=== PATIENT | female | born 1955 | race Caucasian/White ===

== ENCOUNTER 2018-04-24 10:27 | Observation (INO) | payer MEDICARE, OTHER, SELFPAY ==
[2018-04-24] VITALS (13 sets, daily range): BP systolic 155–232; BP diastolic 85–102; PULSE 16–95; RESP 14–18; TEMP 36.4–36.5; O2SAT 94–100
--- NOTE | 2018-04-24 10:24 | DI.CT.S_ITS ---
PROCEDURE: CT HEAD/BRAIN WO CON INDICATIONS: code stroke, TPA candidate TECHNIQUE: Noncontrast 4.5 mm thick angled axial sections acquired from the foramen magnum to the vertex, with coronal and sagittal reformats. For radiation dose reduction, the following was used: automated exposure control, adjustment of mA and/or kV according to patient size. COMPARISON: None. FINDINGS: Image quality: Excellent. CSF spaces: Basal cisterns are patent. No extra-axial fluid collections. The ventricles are symmetric in size and shape. Brain: No intracranial bleeds or masses. There is cerebral volume loss for age, with resultant ventricular and sulcal prominence. There are periventricular and deep white matter chronic small vessel ischemic changes. There is intracranial internal carotid artery atherosclerosis. Skull and face: Calvarium and visualized facial bones appear intact, without suspicious lesions. Sinuses: Visualized sinuses and mastoids are clear. IMPRESSION: No acute intracranial abnormality. Findings discussed with Dr. Menard on 04.24.18 at 1040 hrs. Dictated by: Zayra Vasquez M.D. on 04/24/2018 at 10:38 Approved by: Zayra Vasquez M.D. on 04/24/2018 at 10:40
--- NOTE | 2018-04-24 10:40 | ED.NEUROSD ---
HPI - Neuro Symptoms/Deficit General Chief Complaint: Neuro Symptoms/Deficit Stated Complaint: Rt arm numbness Time Seen by Provider: 04/24/18 10:30 Source: patient and EMS Mode of arrival: EMS Limitations: no limitations History of Present Illness HPI Narrative: 63-year-old otherwise healthy female presents with neurologic symptoms that started while having intercourse just prior to arrival. Her symptoms include right arm and leg numbness as well as some right-sided facial tingling and right-sided tongue involvement. She denies blurred vision or trouble with speech. She states that when attempting to ambulate she had to steady herself because her leg would give out. She denies any history of stroke, hypertension or regular heart rhythm. Her symptoms are unchanged since their onset. She was activated as code stroke given symptoms and time of onset (914). Related Data Home Medications Medication Instructions Recorded Confirmed aspirin 650 mg PO Q4-6H PRN 04/24/18 04/24/18 Allergies Allergy/AdvReac Type Severity Reaction Status Date / Time No Known Drug Allergies Allergy Verified 04/24/18 11:00 Review of Systems Review of Systems All systems reviewed & are unremarkable except as noted in HPI and below Constitutional Denies chills, Denies fever(s), Denies lethargy and Reports weakness Eyes Denies change in vision, Denies eye discharge, Denies irritation and Denies loss of vision ENT Ears, Nose, Mouth, and Throat: Denies change in voice, Denies neck pain and Denies sore throat Cardiovascular Denies chest pain, Denies irregular heart rhythm, Denies lightheadedness, Denies palpitations, Denies dyspnea, Denies dyspnea on exertion and Denies orthopnea Respiratory Denies cough, Denies dyspnea, Denies dyspnea on exertion and Denies wheezing Gastrointestinal Gastrointestinal: Denies abdominal pain, Denies change in bowel habits, Denies diarrhea, Denies nausea and Denies vomiting Genitourinary Denies hematuria, Denies flank pain, Denies urinary incontinence and Denies urinary urgency Musculoskeletal Denies neck pain Integumentary/Breasts Denies pruritus, Denies erythema, Denies rash and Denies wounds Neurologic Denies confusion, Denies loss of vision, Reports sensory deficit and Reports weakness Psychiatric Denies anxiety, Denies confusion, Denies depression, Denies homicidal ideation and Denies suicidal ideation Endocrine Denies palpitations Hematologic/Lymphatic Denies easy bruising Allergic/Immunologic Denies wheezing [facility] Social History household members: spouse Smoking Status: Never smoker Exam Initial Vital Signs Initial Vital Signs: Vital Signs Pulse Rate 95 H 04/24/18 10:57 Respiratory Rate 18 04/24/18 10:57 Blood Pressure 221/85 H 04/24/18 10:57 Pulse Oximetry 98 04/24/18 10:57 Const General: cooperative and well developed Nutritional Appearance: well nourished Orientation: alert, awake, oriented x3 and not confused [facility] Head: normocephalic and atraumatic Ears: external ears normal and TM's normal bilaterally Nose: external nose normal and No nasal discharge Face and sinus: sinuses nontender, face symmetric, no sinus tenderness and No dry mucous membranes Mouth: oral mucosae normal and moist mucous membranes Teeth and gingiva: dentition normal Throat: tonsils normal and uvula midline Eyes General: appearance normal, both eyes and all related structures Eyelids: eyelids normal Conjunctivae: conjunctivae normal Sclera: sclerae normal Pupils: PERRL EOM: EOM intact bilaterally Neck Neck: normal visual inspection, trachea midline, No lymphadenopathy, No midline deformity and No JVD Lymphatic: No lymphedema Chest Chest: normal inspection of the chest Resp Effort & Inspection: normal respiratory effort, able to speak in complete sentences, no respiratory distress and no use of accessory muscles Auscultation: clear to auscultation bilaterally, no rales, no rhonchi and no wheezes Cardio Rate: regular rate Rhythm: regular rhythm Heart Sounds: no click, no gallops, no murmurs and no rubs Pulses: normal peripheral pulses GI Inspection: non-distended Palpation: soft, no hepatosplenomegaly, No guarding, No pulsatile mass and No tender Auscultation: normal bowel sounds Back/Spine/Pelvis Back: No CVA tenderness Cervical Spine: cervical ROM normal and No pain with cervical ROM Thoracic/Lumbar Spine: thoracic and lumbar spine normal to inspection Skin General: no rashes or lesions noted, No jaundice and No petechiae Neuro General: alert, oriented x3, gait normal and no focal motor deficits Speech: speech normal Sensory Exam: other (Minor tingling on right foot and right hand) Extrem General: full ROM, no clubbing, cyanosis or edema, no pedal edema and no calf tenderness Psych Appearance: well kempt Mental Status: mental status grossly normal Attitude: cooperative Thought Content: normal and suicidality Judgment: judgment good Scores NIH Stroke Scale Level of Conciousness: Alert, keenly responsive Ask month/age: Answers both questions correctly. Open/close eyes, close hand: Performs both tasks correctly Best gaze horizontal: Normal Visual husain: No visual loss Facial palsy: Normal symetrical movement Left arm drift: No drift for full 10 sec Right arm drift: No drift for full 10 sec Left leg drift: No drift for full 10 sec Right leg drift: No drift for full 10 sec Limb ataxia: Absent Sensory on face/arms/legs: Mild to moderate sensory loss, can tell touch Best language: No aphasia, normal Dysarthria: Normal Extinction or inattention: No abnormality Total NIH Stroke scale score: 1 Course Orders Ordered: ED Orders 04/24/18 10:24 CT head/brain wo con Stat 04/24/18 10:35 Urine Drug Screen, Rapid Stat 04/24/18 10:38 EKG-12 Lead Stat 04/24/18 10:58 Basic Metabolic Panel Stat Complete Blood Count AUTO DIFF Stat Partial Thromboplastin Time Stat Prothrombin Time INR Stat 04/24/18 12:50 Urine Microscopic Stat 04/24/18 14:58 Consult to Physical Therapy Evaluate & Treat MR stroke Stat Education, smoking cessation ONGOING 04/24/18 15:42 Education, smoking cessation ONGOING 04/25/18 05:00 Complete Blood Count AUTO DIFF Routine Comprehensive Metabolic Panel Routine Lipid Panel Routine Aspirin (Aspirin Ec) 325 mg PO DAILY [facility] Atorvastatin Calcium (Lipitor) 40 mg PO BEDTIME [facility] Docusate Sodium (Colace) 100 mg PO BID [facility] Enoxaparin Sodium (Lovenox) 40 mg SUBCUT DAILY [facility] Sodium Chloride (Normal Saline 0.9%) 1,000 mls @ 150 mls/hr IV CONT NOBLE Last Admin: 04/24/18 15:52 Dose: 150 mls/hr Infusion: 04/24/18 13:53 Dose: 0 mls/hr Admin: 04/24/18 11:33 Dose: 150 mls/hr Labetalol HCl (Normodyne) 10 mg IV Q30MIN PRN PRN Reason: Hypertension Magnesium Hydroxide (Milk Of Magnesia) 30 ml PO DAILY PRN PRN Reason: Constipation Ondansetron HCl (Zofran) 4 mg IV Q8HR PRN PRN Reason: Nausea And Vomiting Ondansetron HCl (Zofran Odt) 4 mg PO Q8HR PRN PRN Reason: Nausea And Vomiting Oxycodone HCl (Percolone) 5 mg PO Q6HR PRN PRN Reason: Pain, Moderate (4-6) Sennosides (Senna) 17.2 mg PO BEDTIME NOBLE Sodium Biphosphate/Sodium Phosphate (Fleet Enema) 1 each SC PRN PRN PRN Reason: Constipation Discontinued Medications Aspirin (Aspirin Chew) 324 mg PO NOW ONE Stop: 04/24/18 10:52 Last Admin: 04/24/18 11:33 Dose: 324 mg Labetalol HCl (Normodyne) 10 mg IV NOW ONE Stop: 04/24/18 12:29 Last Admin: 04/24/18 12:30 Dose: 10 mg Metoprolol Tartrate (Lopressor) 25 mg PO NOW ONE Stop: 04/24/18 12:56 Last Admin: 04/24/18 13:06 Dose: 25 mg Vital Signs - 8 hr 04/24/18 10:57 04/24/18 11:06 04/24/18 11:30 Temperature Pulse Rate 95 H 94 H 87 Respiratory Rate 18 18 18 Blood Pressure 221/85 H Blood Pressure [Right Arm] 213/102 H 211/98 H Pulse Oximetry 98 94 99 04/24/18 12:06 04/24/18 12:40 04/24/18 12:50 Temperature Pulse Rate 16 L 93 H 91 H Respiratory Rate 16 16 16 Blood Pressure Blood Pressure [Right Arm] 232/101 H 186/87 H 182/86 H Pulse Oximetry 100 98 99 04/24/18 13:00 04/24/18 13:56 04/24/18 14:20 Temperature Pulse Rate 90 86 81 Respiratory Rate 16 14 18 Blood Pressure 155/85 H 160/99 H Blood Pressure [Right Arm] 159/88 H Pulse Oximetry 99 98 97 04/24/18 15:42 04/24/18 15:55 Temperature 97.7 F 97.7 F Pulse Rate 81 84 Respiratory Rate 17 17 Blood Pressure 158/91 H 158/91 H Blood Pressure [Right Arm] Pulse Oximetry 96 96 MDM - Neuro Symptoms/Deficit Medical Records Attestation: I reviewed the patient's medical records. Lab Data Result diagrams: 04/24/18 10:58 04/24/18 10:58 Lab Results 04/24/18 04/24/18 04/24/18 Range/Units 10:35 10:58 10:58 WBC 5.2 (4.5-11.0) X10^3/uL RBC 4.29 (4.0-5.2) X10^6/uL Hgb 13.9 (12.0-16.0) g/dL Hct 39.9 (36-46) % MCV 93.0 (80-100) fL MCH 32.3 (26-34) PG MCHC 34.7 (30-36) % RDW 13.4 (11.6-14.8) % Plt Count 290 (150-400) X10^3/uL Neut % (Auto) 66.7 (50-75) % Lymph % (Auto) 24.3 L (25-40) % [place] % (Auto) 6.6 (3-14) % Eos % (Auto) 1.3 L (2-4) % Baso % (Auto) 1.1 (0-2) % Neut # (Auto) 3500 (9524-8645) /uL PT 11.2 (10.1-12.7) SECONDS INR 1.0 (0.9-1.3) APTT 31 (26.4-36.2) SECONDS Sodium (137-145) mmol/L Potassium (3.4-5.1) mmol/L Chloride (98-107) mmol/L Carbon Dioxide (22-32) mmol/L BUN (7-17) mg/dL Creatinine (0.52-1.04) mg/dL Estimated GFR (>60) mL/min BUN/Creatinine Ratio (6-22) Glucose (80-110) mg/dL Calcium (8.4-10.2) mg/dL Urine RBC (0-5/HPF) Urine WBC (0-5/HPF) Urine Bacteria (None) Ur Culture Indicated? Micro UA Comment Urine Opiates Screen Positive H (Negative) Ur Oxycodone Screen Positive H (Negative) Urine Methadone Screen Negative (Negative) Ur Barbiturates Screen Negative (Negative) U Tricyclic Antidepress Negative (Negative) Ur Phencyclidine Scrn Negative (Negative) Ur Amphetamines Screen Negative (Negative) U Methamphetamines Scrn Negative (Negative) Ur MDMA Scrn (Ecstasy) Negative (Negative) U Benzodiazepines Scrn Negative (Negative) Urine Cocaine Screen Negative (Negative) U Marijuana (THC) Screen Negative (Negative) 04/24/18 04/24/18 Range/Units 10:58 12:50 WBC (4.5-11.0) X10^3/uL RBC (4.0-5.2) X10^6/uL Hgb (12.0-16.0) g/dL Hct (36-46) % MCV (80-100) fL MCH (26-34) PG MCHC (30-36) % RDW (11.6-14.8) % Plt Count (150-400) X10^3/uL Neut % (Auto) (50-75) % Lymph % (Auto) (25-40) % [place] % (Auto) (3-14) % Eos % (Auto) (2-4) % Baso % (Auto) (0-2) % Neut # (Auto) (0544-4532) /uL PT (10.1-12.7) SECONDS INR (0.9-1.3) APTT (26.4-36.2) SECONDS Sodium 138 (137-145) mmol/L Potassium 4.1 (3.4-5.1) mmol/L Chloride 99 (98-107) mmol/L Carbon Dioxide 28 (22-32) mmol/L BUN 16 (7-17) mg/dL Creatinine 0.60 (0.52-1.04) mg/dL Estimated GFR > 60.0 (>60) mL/min BUN/Creatinine Ratio 26.7 H (6-22) Glucose 132 H (80-110) mg/dL Calcium 9.6 (8.4-10.2) mg/dL Urine RBC None seen (0-5/HPF) Urine WBC 0-1/hpf (0-5/HPF) Urine Bacteria None seen (None) Ur Culture Indicated? Cult not indicated Micro UA Comment Not Reportable Urine Opiates Screen (Negative) Ur Oxycodone Screen (Negative) Urine Methadone Screen (Negative) Ur Barbiturates Screen (Negative) U Tricyclic Antidepress (Negative) Ur Phencyclidine Scrn (Negative) Ur Amphetamines Screen (Negative) U Methamphetamines Scrn (Negative) Ur MDMA Scrn (Ecstasy) (Negative) U Benzodiazepines Scrn (Negative) Urine Cocaine Screen (Negative) U Marijuana (THC) Screen (Negative) Imaging Data CT scan - head: Radiologist's impression: NAP ECG Data Interpretation: Sinus tachycardia, no ectopy or ischemia MDM Narrative Medical decision making narrative: Given persistence of neurologic symptoms, tingling and right hand and foot this meets criteria for stroke and inpatient admission, suggesting she will need more than 1 night for evaluation and treatment. Furthermore patient's diagnosis hypertensive emergency will require the potential for further evaluation. Patient has been admitted to hospitalist, Dr. Villegas whom is happy to care for patient Discharge Plan Departure Patient Disposition: Admitted As Inpatient Clinical Impression: Acute CVA (cerebrovascular accident), Malignant essential hypertension Discharge Date/Time: 04/24/18 13:58 Interventions: ED Discharge Assessment Last Done: 04/24/18 13:56 Admit Date/Time: 04/24/18 13:25 Admit Provider: Gagan Villegas
--- NOTE | 2018-04-24 10:45 | ED_ITS ---
HPI - Neuro Symptoms/Deficit General Chief Complaint: Neuro Symptoms/Deficit Stated Complaint: Rt arm numbness Time Seen by Provider: 04/24/18 10:30 Source: patient and EMS Mode of arrival: EMS Limitations: no limitations History of Present Illness HPI Narrative: 63-year-old otherwise healthy female presents with neurologic symptoms that started while having intercourse just prior to arrival. Her symptoms include right arm and leg numbness as well as some right-sided facial tingling and right-sided tongue involvement. She denies blurred vision or trouble with speech. She states that when attempting to ambulate she had to steady herself because her leg would give out. She denies any history of stroke , hypertension or regular heart rhythm. Her symptoms are unchanged since their onset. She was activated as code stroke given symptoms and time of onset (914) . Related Data Home Medications Medication Instructions Recorded Confirmed aspirin 650 mg PO Q4-6H PRN 04/24/18 04/24/18 Allergies Allergy/AdvReac Type Severity Reaction Status Date / Time No Known Drug Allergies Allergy Verified 04/24/18 11:00 Review of Systems Review of Systems All systems reviewed & are unremarkable except as noted in HPI and below Constitutional Denies chills, Denies fever(s), Denies lethargy and Reports weakness Eyes Denies change in vision, Denies eye discharge, Denies irritation and Denies loss of vision ENT Ears, Nose, Mouth, and Throat: Denies change in voice, Denies neck pain and Denies sore throat Cardiovascular Denies chest pain, Denies irregular heart rhythm, Denies lightheadedness, Denies palpitations, Denies dyspnea, Denies dyspnea on exertion and Denies orthopnea Respiratory Denies cough, Denies dyspnea, Denies dyspnea on exertion and Denies wheezing Gastrointestinal Gastrointestinal: Denies abdominal pain, Denies change in bowel habits, Denies diarrhea, Denies nausea and Denies vomiting Genitourinary Denies hematuria, Denies flank pain, Denies urinary incontinence and Denies urinary urgency Musculoskeletal Denies neck pain Integumentary/Breasts Denies pruritus, Denies erythema, Denies rash and Denies wounds Neurologic Denies confusion, Denies loss of vision, Reports sensory deficit and Reports weakness Psychiatric Denies anxiety, Denies confusion, Denies depression, Denies homicidal ideation and Denies suicidal ideation Endocrine Denies palpitations Hematologic/Lymphatic Denies easy bruising Allergic/Immunologic Denies wheezing [facility] Social History household members: spouse Smoking Status: Never smoker Exam Initial Vital Signs Initial Vital Signs: Vital Signs Pulse Rate 95 H 04/24/18 10:57 Respiratory Rate 18 04/24/18 10:57 Blood Pressure 221/85 H 04/24/18 10:57 Pulse Oximetry 98 04/24/18 10:57 Const General: cooperative and well developed Nutritional Appearance: well nourished Orientation: alert, awake, oriented x3 and not confused [facility] Head: normocephalic and atraumatic Ears: external ears normal and TM's normal bilaterally Nose: external nose normal and No nasal discharge Face and sinus: sinuses nontender, face symmetric, no sinus tenderness and No dry mucous membranes Mouth: oral mucosae normal and moist mucous membranes Teeth and gingiva: dentition normal Throat: tonsils normal and uvula midline Eyes General: appearance normal, both eyes and all related structures Eyelids: eyelids normal Conjunctivae: conjunctivae normal Sclera: sclerae normal Pupils: PERRL EOM: EOM intact bilaterally Neck Neck: normal visual inspection, trachea midline, No lymphadenopathy, No midline deformity and No JVD Lymphatic: No lymphedema Chest Chest: normal inspection of the chest Resp Effort & Inspection: normal respiratory effort, able to speak in complete sentences, no respiratory distress and no use of accessory muscles Auscultation: clear to auscultation bilaterally, no rales, no rhonchi and no wheezes Cardio Rate: regular rate Rhythm: regular rhythm Heart Sounds: no click, no gallops, no murmurs and no rubs Pulses: normal peripheral pulses GI Inspection: non-distended Palpation: soft, no hepatosplenomegaly, No guarding, No pulsatile mass and No tender Auscultation: normal bowel sounds Back/Spine/Pelvis Back: No CVA tenderness Cervical Spine: cervical ROM normal and No pain with cervical ROM Thoracic/Lumbar Spine: thoracic and lumbar spine normal to inspection Skin General: no rashes or lesions noted, No jaundice and No petechiae Neuro General: alert, oriented x3, gait normal and no focal motor deficits Speech: speech normal Sensory Exam: other (Minor tingling on right foot and right hand) Extrem General: full ROM, no clubbing, cyanosis or edema, no pedal edema and no calf tenderness Psych Appearance: well kempt Mental Status: mental status grossly normal Attitude: cooperative Thought Content: normal and suicidality Judgment: judgment good Scores NIH Stroke Scale Level of Conciousness: Alert, keenly responsive Ask month/age: Answers both questions correctly. Open/close eyes, close hand: Performs both tasks correctly Best gaze horizontal: Normal Visual husain: No visual loss Facial palsy: Normal symetrical movement Left arm drift: No drift for full 10 sec Right arm drift: No drift for full 10 sec Left leg drift: No drift for full 10 sec Right leg drift: No drift for full 10 sec Limb ataxia: Absent Sensory on face/arms/legs: Mild to moderate sensory loss, can tell touch Best language: No aphasia, normal Dysarthria: Normal Extinction or inattention: No abnormality Total NIH Stroke scale score: 1 Course Orders Ordered: ED Orders 04/24/18 10:24 CT head/brain wo con Stat 04/24/18 10:35 Urine Drug Screen, Rapid Stat 04/24/18 10:38 EKG-12 Lead Stat 04/24/18 10:58 Basic Metabolic Panel Stat Complete Blood Count AUTO DIFF Stat Partial Thromboplastin Time Stat Prothrombin Time INR Stat 04/24/18 12:50 Urine Microscopic Stat 04/24/18 14:58 Consult to Physical Therapy Evaluate & Treat MR stroke Stat Education, smoking cessation ONGOING 04/24/18 15:42 Education, smoking cessation ONGOING 04/25/18 05:00 Complete Blood Count AUTO DIFF Routine Comprehensive Metabolic Panel Routine Lipid Panel Routine Aspirin (Aspirin Ec) 325 mg PO DAILY [facility] Atorvastatin Calcium (Lipitor) 40 mg PO BEDTIME [facility] Docusate Sodium (Colace) 100 mg PO BID [facility] Enoxaparin Sodium (Lovenox) 40 mg SUBCUT DAILY [facility] Sodium Chloride (Normal Saline 0.9%) 1,000 mls @ 150 mls/hr IV CONT [facility] Last Admin: 04/24/18 15:52 Dose: 150 mls/hr Infusion: 04/24/18 13:53 Dose: 0 mls/hr Admin: 04/24/18 11:33 Dose: 150 mls/hr Labetalol HCl (Normodyne) 10 mg IV Q30MIN PRN PRN Reason: Hypertension Magnesium Hydroxide (Milk Of Magnesia) 30 ml PO DAILY PRN PRN Reason: Constipation Ondansetron HCl (Zofran) 4 mg IV Q8HR PRN PRN Reason: Nausea And Vomiting Ondansetron HCl (Zofran Odt) 4 mg PO Q8HR PRN PRN Reason: Nausea And Vomiting Oxycodone HCl (Percolone) 5 mg PO Q6HR PRN PRN Reason: Pain, Moderate (4-6) Sennosides (Senna) 17.2 mg PO BEDTIME [facility] Sodium Biphosphate/Sodium Phosphate (Fleet Enema) 1 each RI PRN PRN PRN Reason: Constipation Discontinued Medications Aspirin (Aspirin Chew) 324 mg PO NOW ONE Stop: 04/24/18 10:52 Last Admin: 04/24/18 11:33 Dose: 324 mg Labetalol HCl (Normodyne) 10 mg IV NOW ONE Stop: 04/24/18 12:29 Last Admin: 04/24/18 12:30 Dose: 10 mg Metoprolol Tartrate (Lopressor) 25 mg PO NOW ONE Stop: 04/24/18 12:56 Last Admin: 04/24/18 13:06 Dose: 25 mg Vital Signs - 8 hr 04/24/18 10:57 04/24/18 11:06 04/24/18 11:30 Temperature Pulse Rate 95 H 94 H 87 Respiratory Rate 18 18 18 Blood Pressure 221/85 H Blood Pressure [Right Arm] 213/102 H 211/98 H Pulse Oximetry 98 94 99 04/24/18 12:06 04/24/18 12:40 04/24/18 12:50 Temperature Pulse Rate 16 L 93 H 91 H Respiratory Rate 16 16 16 Blood Pressure Blood Pressure [Right Arm] 232/101 H 186/87 H 182/86 H Pulse Oximetry 100 98 99 04/24/18 13:00 04/24/18 13:56 04/24/18 14:20 Temperature Pulse Rate 90 86 81 Respiratory Rate 16 14 18 Blood Pressure 155/85 H 160/99 H Blood Pressure [Right Arm] 159/88 H Pulse Oximetry 99 98 97 04/24/18 15:42 04/24/18 15:55 Temperature 97.7 F 97.7 F Pulse Rate 81 84 Respiratory Rate 17 17 Blood Pressure 158/91 H 158/91 H Blood Pressure [Right Arm] Pulse Oximetry 96 96 MDM - Neuro Symptoms/Deficit Medical Records Attestation: I reviewed the patient's medical records. Lab Data Result diagrams: 04/24/18 10:58 04/24/18 10:58 Lab Results 04/24/18 04/24/18 04/24/18 Range/Units 10:35 10:58 10:58 WBC 5.2 (4.5-11.0) X10^3/uL RBC 4.29 (4.0-5.2) X10^6/uL Hgb 13.9 (12.0-16.0) g/dL Hct 39.9 (36-46) % MCV 93.0 (80-100) fL MCH 32.3 (26-34) PG MCHC 34.7 (30-36) % RDW 13.4 (11.6-14.8) % Plt Count 290 (150-400) X10^3/uL Neut % (Auto) 66.7 (50-75) % Lymph % (Auto) 24.3 L (25-40) % [place] % (Auto) 6.6 (3-14) % Eos % (Auto) 1.3 L (2-4) % Baso % (Auto) 1.1 (0-2) % Neut # (Auto) 3500 (6882-6750) /uL PT 11.2 (10.1-12.7) SECONDS INR 1.0 (0.9-1.3) APTT 31 (26.4-36.2) SECONDS Sodium (137-145) mmol/L Potassium (3.4-5.1) mmol/L Chloride (98-107) mmol/L Carbon Dioxide (22-32) mmol/L BUN (7-17) mg/dL Creatinine (0.52-1.04) mg/dL Estimated GFR (>60) mL/min BUN/Creatinine Ratio (6-22) Glucose (80-110) mg/dL Calcium (8.4-10.2) mg/dL Urine RBC (0-5/HPF) Urine WBC (0-5/HPF) Urine Bacteria (None) Ur Culture Indicated? Micro UA Comment Urine Opiates Screen Positive H (Negative) Ur Oxycodone Screen Positive H (Negative) Urine Methadone Screen Negative (Negative) Ur Barbiturates Screen Negative (Negative) U Tricyclic Antidepress Negative (Negative) Ur Phencyclidine Scrn Negative (Negative) Ur Amphetamines Screen Negative (Negative) U Methamphetamines Scrn Negative (Negative) Ur MDMA Scrn (Ecstasy) Negative (Negative) U Benzodiazepines Scrn Negative (Negative) Urine Cocaine Screen Negative (Negative) U Marijuana (THC) Screen Negative (Negative) 04/24/18 04/24/18 Range/Units 10:58 12:50 WBC (4.5-11.0) X10^3/uL RBC (4.0-5.2) X10^6/uL Hgb (12.0-16.0) g/dL Hct (36-46) % MCV (80-100) fL MCH (26-34) PG MCHC (30-36) % RDW (11.6-14.8) % Plt Count (150-400) X10^3/uL Neut % (Auto) (50-75) % Lymph % (Auto) (25-40) % [place] % (Auto) (3-14) % Eos % (Auto) (2-4) % Baso % (Auto) (0-2) % Neut # (Auto) (3049-8291) /uL PT (10.1-12.7) SECONDS INR (0.9-1.3) APTT (26.4-36.2) SECONDS Sodium 138 (137-145) mmol/L Potassium 4.1 (3.4-5.1) mmol/L Chloride 99 (98-107) mmol/L Carbon Dioxide 28 (22-32) mmol/L BUN 16 (7-17) mg/dL Creatinine 0.60 (0.52-1.04) mg/dL Estimated GFR > 60.0 (>60) mL/min BUN/Creatinine Ratio 26.7 H (6-22) Glucose 132 H (80-110) mg/dL Calcium 9.6 (8.4-10.2) mg/dL Urine RBC None seen (0-5/HPF) Urine WBC 0-1/hpf (0-5/HPF) Urine Bacteria None seen (None) Ur Culture Indicated? Cult not indicated Micro UA Comment Not Reportable Urine Opiates Screen (Negative) Ur Oxycodone Screen (Negative) Urine Methadone Screen (Negative) Ur Barbiturates Screen (Negative) U Tricyclic Antidepress (Negative) Ur Phencyclidine Scrn (Negative) Ur Amphetamines Screen (Negative) U Methamphetamines Scrn (Negative) Ur MDMA Scrn (Ecstasy) (Negative) U Benzodiazepines Scrn (Negative) Urine Cocaine Screen (Negative) U Marijuana (THC) Screen (Negative) Imaging Data CT scan - head: Radiologist's impression: NAP ECG Data Interpretation: Sinus tachycardia, no ectopy or ischemia MDM Narrative Medical decision making narrative: Given persistence of neurologic symptoms, tingling and right hand and foot this meets criteria for stroke and inpatient admission, suggesting she will need more than 1 night for evaluation and treatment. Furthermore patient's diagnosis hypertensive emergency will require the potential for further evaluation. Patient has been admitted to hospitalist , Dr. Villegas whom is happy to care for patient Discharge Plan Departure Patient Disposition: Admitted As Inpatient Clinical Impression: Acute CVA (cerebrovascular accident), Malignant essential hypertension Discharge Date/Time: 04/24/18 13:58 Interventions: ED Discharge Assessment Last Done: 04/24/18 13:56 Admit Date/Time: 04/24/18 13:25 Admit Provider: Gagan Villegas
[2018-04-24 11:03] LABS: Add Manual Diff / Slide Review NO; Basophils Percent Auto 1.1 % (0-2); Eosinophils Percent Auto 1.3 % (2-4); Hematocrit 39.9 % (36-46); Hemoglobin 13.9 g/dL (12.0-16.0); Lymphocytes Percent Auto 24.3 % (25-40); Mean Corpuscular HGB Conc 34.7 % (30-36); Mean Corpuscular Hemoglobin 32.3 PG (26-34); Monocytes Percent Auto 6.6 % (3-14); Neutrophils Absolute Auto 3500 /uL (3000-5900); Neutrophils Percent Auto 66.7 % (50-75); Platelet Count 290 X10^3/uL (150-400); Red Blood Cell Count 4.29 X10^6/uL (4.0-5.2); Red Cell Distribution Width 13.4 % (11.6-14.8); White Blood Cell Count 5.2 X10^3/uL (4.5-11.0)
[2018-04-24 11:14] LABS: Prothrombin Time 11.2 SECONDS (10.1-12.7)
[2018-04-24 11:16] LABS: PTT Partial Thromboplastin Tim 31 SECONDS (26.4-36.2)
[2018-04-24 11:18] LABS: BUN Creatinine Ratio 26.7 (6-22); Blood Urea Nitrogen 16 mg/dL (7-17); Calcium 9.6 mg/dL (8.4-10.2); Carbon Dioxide 28 mmol/L (22-32); Chloride 99 mmol/L (98-107); Estimated Glomerular Filt Rate > 60.0 mL/min (>60); Glucose 132 mg/dL (80-110); HEMOLYSIS < 15 (0-50); Potassium 4.1 mmol/L (3.4-5.1); Sodium 138 mmol/L (137-145)
[2018-04-24] MEDS: SODIUM CHLORIDE 0.9% 1,000 ML 150 ML IV ×3 (11:33→22:53)
[2018-04-24] MEDS: ASPIRIN 81 MG TAB 324 MG PO (11:33)
[2018-04-24] MEDS: LABETALOL 100 MG/20ML MDV 10 MG IV (12:30)
[2018-04-24 13:04] LABS: Urine Amphetamines Negative (Negative); Urine Barbiturates Negative (Negative); Urine Benzodiazepines Negative (Negative); Urine Cocaine Negative (Negative); Urine MDMA Negative (Negative); Urine Methadone Negative (Negative); Urine Methamphetamines Negative (Negative); Urine Morphine/Opi cutoff 2000 Positive (Negative); Urine Oxycodone Positive (Negative); Urine Phencyclidine Negative (Negative); Urine Tetrahydrocannabinol Negative (Negative); Urine Tricyclic Antidepressant Negative (Negative)
[2018-04-24] MEDS: METOPROLOL 25 MG TABLET PO (13:06)
[2018-04-24 13:13] LABS: Bacteria Urine None Seen; RBC Urine None Seen (0-5/HPF)
[2018-04-24 13:27] LABS: Culture Indicated Urine Cult Not Indicated; WBC Urine 0-1/HPF (0-5/HPF)
--- NOTE | 2018-04-24 14:37 | PC.NURSE ---
Addendum entered by Rhonda Barksdale R.N. 04/24/18 14:46: Only home medication pt reports is aspirin with codeine for headache (for headaches and to prevent migraines). Health history: denies any major health history. Original Note: AM shift Patient arrived at 1403, AOx3, pleasant and denying pain, but reporting mild light-headedness. Reporting a mild headache ( 3/10) and would like something to decrease that. Doesn't want to develop migraine. BP 160/99, 81, 97% RA. SBA to BR. NIH score 0.
--- NOTE | 2018-04-24 16:10 | P.HP_ITS ---
History of Present Illness Date Patient Seen: 04/24/18 Time Patient Seen: 13:54 Chief complaint: Rt arm numbness Narrative: Patient is 63 years of age female who notes onset of right-sided numbness and weakness following sexual encounter with her . Patient notes that she felt the numbness primarily but also weakness that was noted. There was no speech impediment nor difficulty with understanding her 's comments. There was no visual disturbance. The symptoms lasted approximately 4 hr before they resolved. Patient had no recent fevers or chills chest pain cough nausea vomiting. Patient notes that she has no prior history of stroke or TIA. She is a nondiabetic. She does not have known history of hypertension that is being treated. No history of hyperlipidemia. In review of history patient presents with an ABCD2 score of 5/7. This puts patient at moderate risk for stroke. The risk of stroke in the next 2 days is 4.1% the risk of stroke in the next 7 days 5.9% and the risk of stroke in the next 90 days at 9.8% with an intermediate ABCD2 score. Patient History Comment: In review of past medical history patient with out prior history of TIA or CVA nor history of diabetes nor history of hypertension nor history of hyperlipidemia. patient notes history of migraine headache years ago which subsided as she went through the menopause. She does note occasional headache with a vice-like, tight head band sensation that she experiences 3 times per week. Patient uses an aspirin with codeine from [facility] that she regularly uses for these headache episodes 3 times per week. Family & Social History Family history unavailable: Yes (Father with a history of stroke at 90 years of age no history of DVT or PE are peripheral vascular disease otherwise in family members) Social History: household members spouse Prior Living Arrangements Apartment/Condo Safety & Behavioral: Feels Safe in Current Yes Environment Been Physically Hurt or No Threatened By a Person Suicidal Ideation Description None Suicide Plan Description No Plan Tobacco & Substance use: Smoking Status Never smoker alcohol intake frequency 0-2 drinks per day Substance Use Type does not use Comment: Patient is she is a nonsmoker nonalcohol abuser Meds Home Medications Medication Instructions Recorded Confirmed Type aspirin 650 mg PO Q4-6H PRN 04/24/18 04/24/18 History Allergies Allergy/AdvReac Type Severity Reaction Status Date / Time No Known Drug Allergies Allergy Verified 04/24/18 11:00 Review of Systems Review of Systems All systems reviewed & are unremarkable except as noted in HPI and below Exam Vital Signs (past 8 hours): - 04/24/18 10:57 04/24/18 11:06 04/24/18 11:30 Pulse Rate 95 H 94 H 87 Respiratory Rate 18 18 18 Blood Pressure 221/85 H Blood Pressure [Right Arm] 213/102 H 211/98 H Pulse Oximetry 98 94 99 04/24/18 12:06 04/24/18 12:40 04/24/18 12:50 Pulse Rate 16 L 93 H 91 H Respiratory Rate 16 16 16 Blood Pressure Blood Pressure [Right Arm] 232/101 H 186/87 H 182/86 H Pulse Oximetry 100 98 99 04/24/18 13:00 04/24/18 13:56 04/24/18 14:20 Pulse Rate 90 86 81 Respiratory Rate 16 14 18 Blood Pressure 155/85 H 160/99 H Blood Pressure [Right Arm] 159/88 H Pulse Oximetry 99 98 97 Oxygen Delivery Method Room Air Narrative Exam Narrative: Constitutional general appearance patient is awake and alert and comfortable no apparent distress good hygiene apparent Psychiatric Patient is well oriented to time place and person mood and affect is appropriate Respiratory Clear to auscultation with good airflow no wheezes no crackles Cardiovascular Regular in rate rhythm no murmur rubs or gallops PMI is nondisplaced pulses +3 to extremities GI Soft nontender positive bowel sounds no organomegaly no bruits no distension no guarding Lymph nodes No lymphadenopathy to neck or axilla Motor skeletal Motor strength 5/5 no clubbing is noted range of motion is normal Neurologic No focal neurologic changes, cranial nerves 2-12 are grossly intact as noted pupils are equal round and reactive to light and accommodation no sensory proprioception deficit noted Objective Labs Result Diagrams: 04/24/18 10:58 04/24/18 10:58 Labs: Laboratory Results - last 24 hr 04/24/18 04/24/18 04/24/18 10:35 10:58 10:58 WBC 5.2 RBC 4.29 Hgb 13.9 Hct 39.9 MCV 93.0 MCH 32.3 MCHC 34.7 RDW 13.4 Plt Count 290 Neut % (Auto) 66.7 Lymph % (Auto) 24.3 L [place] % (Auto) 6.6 Eos % (Auto) 1.3 L Baso % (Auto) 1.1 Neut # (Auto) 3500 PT 11.2 INR 1.0 APTT 31 Sodium Potassium Chloride Carbon Dioxide BUN Creatinine Estimated GFR BUN/Creatinine Ratio Glucose Calcium Urine RBC Urine WBC Urine Bacteria Ur Culture Indicated? Micro UA Comment Urine Opiates Screen Positive H Ur Oxycodone Screen Positive H Urine Methadone Screen Negative Ur Barbiturates Screen Negative U Tricyclic Antidepress Negative Ur Phencyclidine Scrn Negative Ur Amphetamines Screen Negative U Methamphetamines Scrn Negative Ur MDMA Scrn (Ecstasy) Negative U Benzodiazepines Scrn Negative Urine Cocaine Screen Negative U Marijuana (THC) Screen Negative 04/24/18 04/24/18 10:58 12:50 WBC RBC Hgb Hct MCV MCH MCHC RDW Plt Count Neut % (Auto) Lymph % (Auto) [place] % (Auto) Eos % (Auto) Baso % (Auto) Neut # (Auto) PT INR APTT Sodium 138 Potassium 4.1 Chloride 99 Carbon Dioxide 28 BUN 16 Creatinine 0.60 Estimated GFR > 60.0 BUN/Creatinine Ratio 26.7 H Glucose 132 H Calcium 9.6 Urine RBC None seen Urine WBC 0-1/hpf Urine Bacteria None seen Ur Culture Indicated? Cult not indicated Micro UA Comment Not Reportable Urine Opiates Screen Ur Oxycodone Screen Urine Methadone Screen Ur Barbiturates Screen U Tricyclic Antidepress Ur Phencyclidine Scrn Ur Amphetamines Screen U Methamphetamines Scrn Ur MDMA Scrn (Ecstasy) U Benzodiazepines Scrn Urine Cocaine Screen U Marijuana (THC) Screen Assessment & Plan Plan: Assessment/Plan Narrative: 1. Transient ischemic attack Patient with an ABCD2 score of 5/7 with a risk of stroke at 2 days of 4.1% at 7 days of 5.9% and at 90 days with a 9.8% risk. Patient admitted under observation. I requested an MRI and an MRA of the head neck to be done as soon as possible. In the meantime will provide labetalol 10 mg IV every 30 min as needed for systolic exceeding 180 mm Hg. Neuro checks to be done q.4 hours. Regular diet at this time permitted. Will start Lipitor 40 mg at bedtime daily aspirin 325 mg daily to be continued as well. 2. Malignant hypertension Patient with a blood pressure of 210/108 in the emergency room setting when seen initially. Note labetalol as needed for systolic greater than 180 intravenously. Close monitoring of blood pressure through the day. Will start amlodipine at 5 mg daily for chronic use. As discussed with patient she may benefit by follow-up with a shellfish manager in the outpatient setting to consider a treadmill exercise test to assess further for possibility of exercise induced hypertension episodes. Time Spent With Patient Time with patient: Greater than 35 minutes (65 min) Quality VTE Deep Vein Thrombosis/Pulmonary Embolism Present on Admission: No
--- NOTE | 2018-04-24 18:07 | PC.NURSE ---
patient is A&O x3, pleasant and cooperative w/ staff and able to make needs known. Patient at shift change/bedside req. to use BR. Patient was steady and able to ambulate w/ out feeling dizzy. Patient denies any pain. NIH score is 0 and displays no s/s of any stroke related symptoms or actions. Aid got patient up to BR at 1730 and reported back to nurse that patient was very unsteady and wobbling while ambulating and patient had to grab on to masters and furniture for stabilizing self. Patient was placed back to bed and bed alarm was initiated. Call light w/ in reach. Will cont. to monitor B/P, dizziness and unsteady gait. Patient at time denies any numbness or tingling but states slightly light headed and dizzy.
[2018-04-24] MEDS: DOCUSATE 100 MG CAPSULE PO (21:21)
[2018-04-24] MEDS: SENNOSIDES 8.6 MG TABLET 17.2 MG PO (21:21)
[2018-04-24] MEDS: ATORVASTATIN 20 MG TABLET 40 MG PO (21:21)
[2018-04-24] MEDS: OXYCODONE IR 5 MG TABLET PO (21:21)
[2018-04-25 00:15] VITALS: BP 143/85; PULSE 82; RESP 16; TEMP 36.7; O2SAT 97
--- NOTE | 2018-04-25 01:20 | PC.NURSE ---
Addendum entered by Bianka Lucas R.N. 04/25/18 06:33: Blood pressure 188/97 at 0630. Labetalol 10mg IV to be given now. Will recheck BP in 30min Original Note: Addendum entered by Bianka Lucas R.N. 04/25/18 04:04: Pt needs a one person assist and a gait belt and walker. She is extremely unsteady on her feet. She just got up with the DIRECTOR [employer]ECH AND HEARING to go to the bathroom again, and while trying to ambulate to the bathroom she started to lean and fall towards her right side into the wall next to the bathroom. The DIRECTOR [employer]ECH AND HEARING was able to stabilize her and prevent her from fully slamming into the wall and falling. The next time the patient needs to void we will use the bedside commode and keep it very close to the bed so it is just a pivot and one step. Original Note: Pt is AxOx3, VSS. NIH=0. Patient called to use the bathroom; upon standing her up next to the bed she immediately dropped onto the bed and had no muscle control/strength to support herself. She denies being dizzy or any loss of vision but stated she just feels a bit light headed. We explained to patient that we will get her up more slowly and dangle her legs at the bedside first. High risk Fall yellow gown was then put on patient, high risk fall sign next to door, and bed alarm turned on.
[2018-04-25 05:44] LABS: Add Manual Diff / Slide Review NO; Basophils Percent Auto 0.4 % (0-2); Eosinophils Percent Auto 0.7 % (2-4); Hematocrit 39.3 % (36-46); Hemoglobin 13.4 g/dL (12.0-16.0); Lymphocytes Percent Auto 23.3 % (25-40); Mean Corpuscular HGB Conc 34.2 % (30-36); Mean Corpuscular Hemoglobin 31.8 PG (26-34); Mean Corpuscular Volume 93.1 fL (80-100); Neutrophils Absolute Auto 5200 /uL (3000-5900); Neutrophils Percent Auto 68.6 % (50-75); Platelet Count 268 X10^3/uL (150-400); Red Blood Cell Count 4.22 X10^6/uL (4.0-5.2); Red Cell Distribution Width 13.7 % (11.6-14.8); White Blood Cell Count 7.5 X10^3/uL (4.5-11.0)
[2018-04-25 06:14] LABS: Alanine Aminotransferase 45 IU/L (9-52); Albumin 4.2 g/dL (3.5-5.0); Albumin Globulin Ratio 1.4 (1.0-2.8); Alkaline Phosphatase 75 U/L (38-126); Aspartate Aminotransferase 40 IU/L (14-36); Bilirubin Total 0.6 mg/dL (0.2-1.3); Blood Urea Nitrogen 6 mg/dL (7-17); Calcium 9.3 mg/dL (8.4-10.2); Carbon Dioxide 26 mmol/L (22-32); Chloride 106 mmol/L (98-107); Cholesterol 322 mg/dL (140-199); Estimated Glomerular Filt Rate > 60.0 mL/min (>60); Globulin 2.9 g/dL (1.7-4.1); Glucose 122 mg/dL (80-110); HDL Cholesterol 49 mg/dL (40-60); HEMOLYSIS < 15 (0-50); LDL Cholesterol Calculated 227 mg/dL (<100); Sodium 140 mmol/L (137-145); Total Protein 7.1 g/dL (6.3-8.2); Triglycerides 229 mg/dL (35-150)
[2018-04-25 06:32] VITALS: BP 188/97; PULSE 85; RESP 16; TEMP 36.9; O2SAT 97
[2018-04-25] MEDS: SODIUM CHLORIDE 0.9% 1,000 ML 150 ML IV (06:38)
[2018-04-25] MEDS: LABETALOL 100 MG/20ML MDV 10 MG IV ×2 (06:42→07:42)
[2018-04-25 07:00] VITALS: O2SAT 97
[2018-04-25 07:52] VITALS: BP 188/91; PULSE 82; RESP 18; TEMP 36.1; O2SAT 95
[2018-04-25 08:25] VITALS: BP 146/96
--- NOTE | 2018-04-25 08:43 | PC.NURSE ---
Pt given 10mg of iv Lebatolol for bp of 188/91. Rechecked about half hour later and bp down to 146/96. Pt denies feeling dizzy or Sob. IVF infusing and pt is eating her breakfast.
[2018-04-25] MEDS: ASPIRIN EC 325 MG TABLET PO (08:48)
[2018-04-25] MEDS: DOCUSATE 100 MG CAPSULE PO (08:48)
[2018-04-25] MEDS: ENOXAPARIN 40 MG/0.4 ML SYRINGE SUBCUT (08:49)
[2018-04-25] MEDS: AMLODIPINE 5 MG TABLET PO (08:49)
[2018-04-25 11:36] VITALS: BP 153/80; PULSE 88; RESP 18; TEMP 36.2; O2SAT 97
--- NOTE | 2018-04-25 12:32 | CM.DANOTE ---
Addendum entered by Lurdes Mason LPN 04/25/18 14:03: Dr. Villegas has now confirmed that that pt did have a small CVA. PT Maciej has worked with pt, deemed her stable for home but with the use of a FWW initially. Pt wishes to receive this from the PT dept consignment closet. Order is obtained now for same and given to PT Maciej to process accordingly. Pt home today. Maciej anticipates she will only need this for about a week as she recovers. Pt plans then to let other family members use in going forward. Original Note: Discharge Planning/Care Management DCP: assessment: case received, EMR reviewed and met with pt this morning at 0830. Introduced self and role. Pt is a 63 year old female who admitted to care of hospitalist team yesterday after noon. Payer: Medicare and [employer]. She says she feels better this morning but still has some sumbness in R lower leg. At that point MRI/MRA were pending. PT was ordered. P: follow prn as POC unfolds to assist with any d/c needs that may arise. At his point home appears likely. MRI/MRA results are back now and waiting for Dr. Villegas's review. CM Discharge Assessment Start: 04/25/18 12:12 Freq: Status: Active Protocol: Document 04/25/18 12:12 ITV (Rec: 04/25/18 12:32 ITV [id number]) Discharge Planning Assessment Advance Directives? No History Provided By Patient Medical Record Prior Living Arrangements Apartment/Condo Household Members spouse Type of transporation used prior to Drives own vehicle admit Independent with ADL's Yes Is patient alert and oriented? Yes Comment Pt plan to establish with a new PCP. Her prior physician left town and she never followed up to get another one . Comment Pt and her live in [place]. They were here for the weekend staying at [place] [employer] with adult daughter and grandchildren Barriers to Discharge No Comment family will pick her up when she is stable for d/c. Whiteboard Updated in Patient Room with Yes name and ext. # of Food Analyst Review Status In Process Next Review Type Continued Stay Review
--- NOTE | 2018-04-25 13:45 | PT.IIE ---
Physical Therapy Inpatient Evaluation/Re-Eval M1 PT/OT-IP Prior Functional Status Start: 04/25/18 13:57 Freq: Status: Discharge Protocol: Document 04/25/18 13:45 [facility] (Rec: 04/25/18 14:09 [facility] [id number]) Medical Review Prior Functional Status Medical History Reviewed Yes Diet/Fluid Consistency Regular Communication WNL Mobility and Gait indep. community ambulator without device Activities of Daily Living and IADL's indep. I/ADLs Social History Household Members spouse Living Arrangements Apartment/Condo Number of Floors (Floors) One Floor Number of Stairs To Enter/Railing? no steps to enter/exit Home Environment Standard Height Toilet Walk in Shower Tub/Shower Home Equipment Shower Seat without Backrest Additional Social History Comment Pt with R sided numbness and weakness, symptoms lasting for 4 hrs then resolving. MRI finding: Acute left cerebral infarct involving or just posterior to the left thalamus . She is R hand dominant. M2 PT-IP Current Condition Start: 04/25/18 13:57 Freq: Status: Discharge Protocol: Document 04/25/18 13:45 [facility] (Rec: 04/25/18 14:09 [facility] [id number]) Physical Therapy Current Condition Current Condition Evaluation Date 04/25/18 Treatment Diagnosis CVA, impaired activity tolerance Onset Date 04/24/18 M3 PT-IP Subjective Start: 04/25/18 13:57 Freq: Status: Discharge Protocol: Document 04/25/18 13:45 RCC (Rec: 04/25/18 14:09 [facility] [id number]) Subjective Physical Therapy Visit Type Type Initial Evaluation Visit Start Time 13:25 Visit Stop Time 13:45 Total Visit Minutes 20 Notes in room during evaluation Number of CELLULAR PLASTICS CUTTER Visits 0 Physical Therapy Visit Comments Patient Comments pt feels like the weakness is gone, still some numbness in her R foot (plantar surface). Short Term Goals go home, improve Therapy Pain Assessment Pain Present Pain Present Denied Pain M4 PT-IP Mobility and Gait Start: 04/25/18 13:57 Freq: Status: Discharge Protocol: Document 04/25/18 13:45 [facility] (Rec: 04/25/18 14:09 [facility] [id number]) PT-Bed Mobility Assessment Scooting Scooting to Edge of Bed Independent PT-Transfer Assessment Sit to and From Stand Sit to and from Stand Standby Assistance Equipment Transfer Assistive Device Gait Belt Front Wheeled Walker Transfers Transfer Destination Bed Transfer Technique Stand Step Pivot Transfer Ability Level of Assist Standby Assistance Gait Assessment Gait Gait Assistance Required: Standby Assistance Distance (Feet) (feet) 150 Assistive Devices Assistive Device Gait Belt Front Wheeled Walker Gait Deviations General Gait Pattern Decreased Stride Length Decreased Feet Clearance Factors Limiting Gait Function Factors Limiting Gait Function Decreased Activity Tolerance Decreased Sensation Decreased Strength Comments Gait Comments Attempted gait without assistive device x20 ft, increased lateral sway, shortened step length and decreased foot clearance, scissoring of RLE when turning to the R. PT-Balance Assessment Sitting Balance and Reactions Static Sitting Balance Ability Good Dynamic Sitting Balance Ability Good Standing Balance and Reactions Static Standing Balance Ability Fair Dynamic Standing Balance Ability Fair Device Used FWW M5 PT-IP Objective Assessments Start: 04/25/18 13:57 Freq: Status: Discharge Protocol: Document 04/25/18 13:45 [facility] (Rec: 04/25/18 14:09 [facility] [id number]) Orientation Orientation/Cognition Level of Alertness Alert Gross Range of Motion Upper Extremity ROM Assessment Within Functional Limits Lower Extremity ROM Assessment Within Functional Limits Strength Upper Extremity Strength Assessment Right Impaired Shoulder R flexion and abduction 4/5 Hand head bookkeeper R weaker than L Lower Extremity Strength Assessment Right Impaired Hip R flexion 4/5 Coordination Assessment Assessment Finger to Nose Test Normal Performance Heel on Ocampo Test Normal Performance Sensation Assessment Sensation Light Touch Impaired Sensation Description Numbness Comments Sensation Comments impaired R UE and LE- lateral upper and lower arm, upper thigh, and medial plantar surface of the foot. Muscle Tone Muscle Tone WNL Yes M6 PT-IP Treatment Start: 04/25/18 13:57 Freq: Status: Discharge Protocol: Document 04/25/18 13:45 [facility] (Rec: 04/25/18 14:09 [facility] [id number]) Physical Therapy Treatment Education Education Provided Precautions Safety M7 PT-IP Assessment and Plan Start: 04/25/18 13:57 Freq: Status: Discharge Protocol: Document 04/25/18 13:45 [facility] (Rec: 04/25/18 14:09 [facility] [id number]) PT Summary Assessment and Plan Potential Rehabilitation Potential Good Status of Condition at Evaluation Evolving Summary Impairments Balance Sensation Gait Activity Tolerance Assessment Summary Pt requires the use of a FWW with ambulation at this time, as she demonstrates increased unsteadiness and ataxia without using a device for ambulation. She is at increased risk for falls, which is further increased without the use of an assistive device. Pt without c /o dizziness during session or visual changes. Pt would greatly benefit from the use of a FWW for home use, and possibly OP PT and OT for further training and progression toward prior level of function. Goals Bed Mobility Goal Independent Transfer Goal Independent Gait Goal Independent Gait Distance 300 Days to Meet Goals 2 Frequency of Treatment Frequency Of Treatment Once a Day Treatment Plan Physical Therapy Treatment Plan Bed Mobility Training Transfer Training Gait Training Therapeutic Exercise Balance Retraining Recommendations To Nursing Amount of Assist Needed 1 Person Assist Discharge Recommendations PT Discharge Recommendations Home with Assistance Outpatient PT Other Discharge Recommendations OP PT and OT
--- NOTE | 2018-04-25 14:58 | DI.MRI.S_ITS ---
PROCEDURE: MR STROKE Pre- and post-contrast brain MRI, non-contrast brain MR angiogram, pre- and postcontrast neck MR angiogram INDICATIONS: MRI and MRA head/neck to eval for CVA and causation of CVA TECHNIQUE: Brain: Noncontrast axial T1 spin echo, axial T2 fast spin echo, sagittal and axial FLAIR, coronal T2 fast spin echo, axial gradient echo, axial diffusion and ADC through the brain. After the administration of contrast, axial 3D VIBE of the cranial vasculature and brain. Brain MRA: Non-contrast 3-D time of flight MR angiogram, with multiple mibfbwm-hrmgxjbdi-viclwnyqwr (MIP) reformats performed. Neck MRA: Axial and sagittal TruFISP through the neck. Coronal dynamic MR angiogram during administration of contrast in the arterial and venous phases, with 3-dimenstional divwyyo-zldjhrwjm-nutexufpwv (MIP) reformats constructed from subtraction images. COMPARISON: None. FINDINGS: Image quality: Excellent. BRAIN: CSF spaces: Ventricles are normal in size and shape. Basal cisterns are patent. No extra-axial fluid collections. Mild diffuse cerebral volume loss noted. Brain: No intracranial bleeds or mass effects. Mullen-white matter interface is normal. Diffusion weighted images demonstrate focal restricted diffusion within or just posterolateral to the left thalamus. Brainstem appears normal. Normal intravascular flow voids are present. No abnormal intracranial enhancement. Skull and face: Calvarial marrow signal is normal. Orbits appear normal. Sinuses: Sinuses and mastoids are clear. BRAIN MR ANGIOGRAM: Anterior circulation: Intracranial internal carotid arteries are normal in size and enhancement. The flow within the paired anterior cerebral arteries is normal and symmetric. The flow within the middle cerebral arteries is normal and symmetric. The anterior communicating artery is not well seen. No stenoses, occlusions, or aneurysms. Posterior circulation: The visualized portions of the vertebral arteries demonstrate normal caliber, and join to form a normal appearing basilar artery. The flow within the posterior cerebral arteries is normal and symmetric. No stenoses, occlusions, or aneurysms. NECK MR ANGIOGRAM: Carotids: The origins of the common carotid arteries appear patent. The calibers and courses of both internal carotid arteries are normal. The bifurcation regions appear normal bilaterally. Posterior circulation: The origins of the vertebral arteries appear patent. More superior portions of both vertebral arteries demonstrate normal course and caliber, and join to form a normal appearing basilar artery. IMPRESSION: BRAIN MRI: Acute left cerebral infarct involving or just posterior to the left thalamus. BRAIN MR ANGIOGRAM: No aneurysms, dissections, or occlusions seen. NECK MR ANGIOGRAM: No aneurysms, dissections, or occlusion seen. Findings discussed with Dr. Juan Carlos Menard of the [facility] at 10:52am on 04/25/[address] Landry. Dictated by: Jf Landry M.D. on 04/25/2018 at 10:38 Approved by: Jf Landry M.D. on 04/25/2018 at 10:54
--- NOTE | 2018-04-25 22:44 | PM.DS.1 ---
History of Present Illness Date Patient Seen: 04/25/18 Time Patient Seen: 15:44 Chief complaint: Right-sided weakness and numbness Narrative: Patient is 63 years of age female who notes onset of right-sided numbness and weakness following sexual encounter with her . Patient notes that she felt the numbness primarily but also weakness that was noted. There was no speech impediment nor difficulty with understanding her 's comments. There was no visual disturbance. The symptoms lasted approximately 4 hr before they resolved. Patient had no recent fevers or chills chest pain cough nausea vomiting. Patient notes that she has no prior history of stroke or TIA. She is a nondiabetic. She does not have known history of hypertension that is being treated. No history of hyperlipidemia. In review of history patient presents with an ABCD2 score of 5/7. This puts patient at moderate risk for stroke. The risk of stroke in the next 2 days is 4.1% the risk of stroke in the next 7 days 5.9% and the risk of stroke in the next 90 days at 9.8% with an intermediate ABCD2 score. Discharge Providers Date of admission: 04/24/18 13:25 Consults: 04/24/18 14:58 Consult to Physical Therapy Evaluate & Treat Comment: Physician Instructions: Evaluate and Treat 04/25/18 13:55 Consult to Physical Therapy Evaluate & Treat Comment: unsteady gait/CVA Physician Instructions: FWW at d/c as per PT recommendation: Discharge provider: Gagan Villegas MD Summary Discharge Diagnosis: 1. Acute left cerebral infarct involving or just posterior to the left thalamus as noted by MRI of the brain on April 24, 2018 2. Malignant essential hypertension Hospital Course: Patient was admitted to the hospital with near resolution of her neurologic deficit. Her initial complaint was right-sided weakness and numbness. She was having minimal tingling numbness to her fingertips or her toes around the time of admission to the floor. I started the patient on Lipitor at 40 mg daily while awaiting results of the MRI. Aspirin was continued to 325 mg daily. When the MRI was reported with the acute stroke a increase the Lipitor to 80 mg daily. Patient was noted ambulating reasonably well. She was not at risk to fall. Due to the elevated blood pressure 180/91 in a.m. on April 25 I also start amlodipine at 5 mg daily. This will be continued upon discharge. BRAIN MRI: Acute left cerebral infarct involving or just posterior to the left thalamus. BRAIN MR ANGIOGRAM: No aneurysms, dissections, or occlusions seen. NECK MR ANGIOGRAM: No aneurysms, dissections, or occlusion seen Patient was discharged home on April 25 with intended follow-up with her PCP when next available Status at Discharge Cognitive/behavioral status at discharge: Awake and alert no apparent distress well oriented mood is pleasant cooperative affect is appropriate Functional status at discharge: independent ambulation Overall status at discharge: patient is progressing back to baseline Time Spent with Patient Greater than 30 minutes (35 min) Exam Vital Signs (past 8 hours): Oxygen Delivery Method Room Air Oxygen Flow Rate 0 Narrative Exam Narrative: Awake and alert no apparent distress Respiratory is clear to auscultation with no wheezes no crackles Cardiovascular regular rate rhythm GI benign soft nontender Objective Labs Result Diagrams: 04/25/18 05:30 04/25/18 05:30 Labs: Laboratory Results - last 24 hr 04/25/18 04/25/18 05:30 05:30 WBC 7.5 RBC 4.22 Hgb 13.4 Hct 39.3 MCV 93.1 MCH 31.8 MCHC 34.2 RDW 13.7 Plt Count 268 Neut % (Auto) 68.6 Lymph % (Auto) 23.3 L Lau[place] % (Auto) 7.0 Eos % (Auto) 0.7 L Baso % (Auto) 0.4 Neut # (Auto) 5200 Sodium 140 Potassium 4.0 Chloride 106 Carbon Dioxide 26 BUN 6 L Creatinine 0.50 L Estimated GFR > 60.0 BUN/Creatinine Ratio 12.0 Glucose 122 H Calcium 9.3 Total Bilirubin 0.6 AST 40 H ALT 45 Alkaline Phosphatase 75 Total Protein 7.1 Albumin 4.2 Globulin 2.9 Albumin/Globulin Ratio 1.4 Triglycerides 229 H Cholesterol 322 H LDL Cholesterol, Calc 227 H HDL Cholesterol 49 Discharge Plan Discharge Plan Patient Disposition: Home, Self-Care Provider Discharge Instructions Diet: Regular Discharge Data Attending Provider: Gagan Villegas Admit Date/Time: 04/24/18 13:25 Discharge Interventions Interventions: Discharge assessment Last Done: 04/25/18 12:54 Discharges patient from system. Discharge Date/Time: 04/25/18 13:47 Quality VTE Deep Vein Thrombosis/Pulmonary Embolism Present on Admission: No
== END 2018-04-25 13:47 | disposition home or self-care (01) ==
LOC: ED 13:13 → AC 04-25 12:44
PROVIDERS: Admitting Provider Internal Medicine; Emergency Provider Emergency Medicine; Visit Provider Internal Medicine
DX: G45.9 Transient cerebral ischemic attack, unspecified (principal); R20.0 Anesthesia of skin; R53.1 Weakness; I16.1 Hypertensive emergency
CPT/HCPCS: 36415; 36591; 70450; 70553; 80048; 80053; 80061; 80305; 81003; 81015; 82962; 85025; 85610; 85730; 93005; 93010; 96361; 96374; 97162; 99283; 99285; G0378; A9579; J1650